=== PATIENT | female | born 1955 | race Caucasian/White ===

== ENCOUNTER → 2019-12-18 | Outpatient (CLI) | payer MEDICARE, BC ==
--- NOTE | 2019-12-18 19:19 | KCIC ---
PROCEDURE: WRIST 3V LEFT STUDY DATE: 12/18/2019 CLINICAL INDICATION / HISTORY: Reason: PAIN STATUS POST CARPAL TUNNEL RELEASE / Spl. Instructions: Pain and swelling 1 month. / History: . TECHNIQUE: Left wrist 3 views. AP, lateral, oblique views. COMPARISON: None FINDINGS: The radiocarpal and intracarpal relationships are maintained. There is no fracture or dislocation. The bone density is normal. Mild soft tissue edema in the volar aspect of the radial metaphysis is present.. IMPRESSION: Mild soft tissue edema on the volar aspect of the radial metaphysis. Otherwise negative left wrist x-rays. Electronically signed by: Kim Quintero MD (12/18/2019 7:16 PM) [facility] [place]
== END | disposition home or self-care (01) ==
LOC: KCIC 11:22
PROVIDERS: ATTEND Physician Assistant
DX: M25.532 Pain in left wrist (principal); M79.89 Other specified soft tissue disorders; Z98.890 Other specified postprocedural states
CPT/HCPCS: 73110